=== PATIENT | male | born 1980 | race Caucasian/White ===

== ENCOUNTER 2017-12-29 11:32 | Emergency (ER) | payer BC, SELFPAY ==
[2017-12-29 11:33] VITALS: BP 151/87; PULSE 73; PULSE 77; RESP 16; TEMP 36.7; O2SAT 98; O2SAT 99; BMI 36.8
[2017-12-29 11:45] VITALS: BP 147/82; PULSE 71; RESP 14; O2SAT 97
--- NOTE | 2017-12-29 12:08 | RAD_ITS ---
STUDY: X-RAY CHEST REASON FOR EXAM: Male, 37 years old. Chest pain. Anxiety. TECHNIQUE: Single AP portable view of the chest. COMPARISON: Comparison is made with prior study dated August 04, 2010. FINDINGS: EKG electrodes are seen. The lungs are clear and expanded. There is no demonstrated pleural abnormality. Normal size heart. Normal mediastinum and michael. Normal visualized pulmonary arteries. Normal visualized aortic arch and descending thoracic aorta. Normal visualized thoracic spine. Normal visualized ribs, clavicles, and shoulders. There is no demonstrated abnormality of the visualized soft tissue structures of the upper abdomen. RAD/Chest 1 View (Portable) IMPRESSION: Normal x-ray examination of the chest. Electronically Signed: Oswaldo Garcia MD at 12:34 EST Tel [phone], Service support ,
--- NOTE | 2017-12-29 12:08 | EKG12_ITS ---
Test Reason : Blood Pressure : / mmHG Vent. Rate : 064 BPM Atrial Rate : 064 BPM P-R Int : 154 ms QRS Dur : 096 ms QT Int : 418 ms P-R-T Axes : 063 001 024 degrees QTc Int : 431 ms Normal sinus rhythm Normal ECG Confirmed by TAMMIE MALDONADO ([id number]), editor in chief newspaper REYMUNDO SUN ([id number]) on 01/03/2018 1:45:05 PM Referred By: VIC Confirmed By:TAMMIE MALDONADO
--- NOTE | 2017-12-29 12:08 | ED.VISSUMM ---
- ER Visit Summary Date of Service: 12/29/17 Chief Complaint: Midsternal chest pain History of Present Illness: The patient is a 37 M past medical history of hypertension and anxiety. He has never had any cardiac issues. He denies any history of DVT or PE. No recent travel, surgery or mobilization. No hemoptysis. No shortness of breath. Patient states today around 9 AM while at work he started getting midsternal chest discomfort. It did not radiate to his neck, left arm or jaw. He had no associated dyspnea. No recent trauma to his chest wall. No recent exertional dyspnea or exertional chest pain. He is never had a cardiac workup such as a stress test or heart catheterization. He has no significant family history of cardiac disease or blood clotting disorders. He denies any leg pain or swelling. Physical Examination: Well-appearing young male. Vital signs are stable and afebrile. He is not septic or toxic. He is in no distress. His pulse ox is 97% room air no signs of hypoxia. HEENT exam unremarkable. Neck nontender no lymphadenopathy. Lungs clear to auscultation bilaterally. Heart regular rhythm no murmur. Chest wall is nontender. Abdomen soft nontender. Normal bowel sounds. He is moving all 4 extremities. Neurovascular intact. Calves nontender without edema. Neurologically is awake and alert without focal deficits. Back exam normal. Test Results: See normal. BMP normal. Troponin normal. Chest x-ray portable one view read both myself the radiologist showed no acute abnormality. Normal cardiac silhouette and mediastinum. G sinus rhythm rate 64 with no acute abnormality. No signs of TN or ischemia. Emergency Department Course and Treatment: Young male with atypical nonreproducible chest pain. Will undergo cardiac workup for clinically at my suspicion for cardiac disease is very low and he has no risk factors for a DVT or PE. Treatment Plan: Repeat exam patient is doing well at 1510. He and I discussed all his test results and he and I feel comfortable with him being discharged home. Disposition: discharge Impression: Acute chest pain of uncertain etiology Anxiety This note was generated with [employer] dictation software. It may contain incorrect words, spelling, and punctuation that were not noted in review of the chart prior to signing ED Disposition - Plan for ED Patient: Chief Complaint: Chest Pain [facility] [[facility] Provider] -
[2017-12-29 12:40] LABS: Absolute Lymphocyte Count 1.97 X10^3/ul (0.83-4.51); Basophil# 0.05 X10^3/uL; Basophil% 0.6 % (0-1); Eosinophil# 0.15 X10^3/uL; Eosinophils% 1.9 % (0-5); Hematocrit 44.4 % (40-54); Hemoglobin 15.5 g/dl (13.0-16.5); Lymphocyte # 1.97 X10^3/ul (4.0); Lymphocyte % 24.4 % (19-41); Mean Corp Hgb Conc 34.9 g/gl (32-36); Mean Corpuscular Hgb 30.3 pg (27.0-32.0); Mean Corpuscular Volume 86.7 fL (80-94); Mean Platelet Vol. 10.7 fl (6.2-12.0); Monocyte# 0.93 X10^3/uL; Monocyte% 11.5 % (0-10); Neutrophil # 4.96 X10^3/uL (2.7-7.7); Neutrophil % 61.4 % (47-70); Platelet Count 247 K/mm3 (150-450); RBC Distribution Width CV 12.9 % (11.6-14.6); Red Blood Count 5.12 M/mm3 (4.6-6.2); White Blood Count 8.1 K/mm3 (4.4-11.0)
[2017-12-29 12:44] LABS: Anion Gap 6 (5-15); BUN 18 mg/dL (7-18); BUN/Creat Ratio 16.8 RATIO (10-20); Calcium,Total 8.8 mg/dL (8.5-10.1); Chloride 102 mmol/L (98-107); Creatinine, Serum 1.07 mg/dL (0.70-1.30); EST Glomerular Filtration Rate 83 mL/min (>60); Est Glom Filt Rate - Afr Amer 101 mL/min (>60); Estimated Creatinine Clearance 96.36 ml/min; Glucose 117 mg/dL (74-106); Potassium 3.8 mmol/L (3.5-5.1); Sodium Level 137 mmol/L (136-145)
[2017-12-29 13:03] VITALS: BP 140/88; PULSE 70; RESP 14; O2SAT 95
[2017-12-29 14:56] VITALS: BP 136/64; PULSE 66; RESP 16; O2SAT 95
--- NOTE | 2017-12-29 15:16 | ED.DEP ---
ED Disposition - Plan for ED Patient: Disposition: Home or Assisted Living Chief Complaint: Chest Pain Instructions: ED Chest Pain Atypical Unkn Cause [facility]errals: [facility] [Primary Care Provider] - 3-5 Days if not improving Additional Instructions: Your labs, test results, EKG and chest x-ray were normal today. This may be secondary to your anxiety. There does not appear to be eating wrong with your heart.
== END 2017-12-29 15:42 | disposition home or self-care (01) ==
PROVIDERS: Emergency Provider Emergency Medicine
DX: R07.89 Other chest pain (principal); F41.9 Anxiety disorder, unspecified; I10 Essential (primary) hypertension; J45.909 Unspecified asthma, uncomplicated; Z79.899 Other long term (current) drug therapy
CPT/HCPCS: 71045; 80048; 84484; 85025; 93005; 99285; A4216

== ENCOUNTER → 2018-08-02 16:35 | Outpatient (CLI) | payer BC, SELFPAY ==
[2018-08-02 17:37] LABS: Vitamin D,25 Hydroxy 9.1 ng/mL (29.95-100.01)
[2018-08-02 18:18] LABS: AST(SGOT) 36 U/L (15-37); Alanine Aminotransfer ALT/SGPT 52 U/L (16-61); Albumin, Serum 4.2 g/dL (3.2-5.0); Alkaline Phosphatase 47 U/L (45-117); Anion Gap 11 (5-15); BUN 16 mg/dL (7-18); BUN/Creat Ratio 13.3 RATIO (10-20); Bilirubin, Direct 0.06 mg/dL (0.00-0.30); Calcium,Total 8.4 mg/dL (8.5-10.1); Chloride 99 mmol/L (98-107); EST Glomerular Filtration Rate 73 mL/min (>60); Est Glom Filt Rate - Afr Amer 88 mL/min (>60); Globulin 3.7 g/dL (2.2-4.2); Glucose 129 mg/dL (74-106); Magnesium 2.1 mg/dL (1.6-2.6); Potassium 3.8 mmol/L (3.5-5.1); Protein, Total 7.9 g/dL (6.4-8.2); Sodium Level 138 mmol/L (136-145); T4 Free Direct 1.02 ng/dL (0.76-1.46)
== END ==
PROVIDERS: Visit Provider Physician Assistant Medical
DX: I10 Essential (primary) hypertension (principal); R53.83 Other fatigue
CPT/HCPCS: 36415; 80048; 80076; 82306; 83735; 84439; 84443

== ENCOUNTER → 2018-10-06 11:43 | Outpatient (CLI) | payer BC, SELFPAY ==
[2018-09-21 10:26] VITALS: BMI 36.4
--- NOTE | 2018-10-06 15:10 | STRESSREP ---
Stress Test Report Date: 10/06/2018 Procedure: Exercise tolerance test Indications: Palpitations; PVCs Consent: Per the patient Procedure: The patient exercised on a Jeison protocol for 9 minutes completing Stage III achieving a peak heart rate of 173 bpm (94 % predicted maximal heart rate) with a peak blood pressure 230/62 mmHg and a peak MET capacity of approximately 10 MET's. The baseline ECG demonstrated normal sinus rhythm. The peak exercise ECG demonstrated no obvious ECG changes. There were no cardiac dysrhythmias pretest, during exercise, or recovery. The functional capacity was considered good. The patient had no complaint of chest discomfort during exercise or recovery. The examination was discontinued secondary to dyspnea. Impression: 1. Technically adequate (percent predicted maximal heart rate greater than 85%) exercise tolerance test 2. Peak exercise ECG with no obvious ECG changes 3. There were no cardiac dysrhythmias during exercise or recovery This note was generated with [employer] software. It may contain incorrect words, spelling, and punctuation that were not noted in checking the note before signing.
--- OUTSIDE RECORDS SUMMARY | 2018-12-01 10:33 | XMS RPT_ITS | Summary of Care ---
:1980 Author Organization [facility] Address [address] [place] [address] Care Team Providers Name Role Phone Ellie Farooq MD Primary Care Provider Reason for Referral Cardio (Routine) Status Reason Specialty Diagnoses / Referred By Contact Referred To Contact Procedures Closed Cardiology Diagnoses Amaurosis fugax Hesham Farooqnt G, Procedures Carotid Duplex [address] [place] [phone] Cardio (Routine) Status Reason Specialty Diagnoses / Referred By Contact Referred To Contact Procedures Closed Cardiology Diagnoses Amaurosis fugax FarooqJordenEllie G, Procedures Carotid Duplex [address] [place] [id number] Reason for Visit Cardio (Routine) Status Reason Specialty Diagnoses / Referred By Contact Referred To Contact Procedures Closed Cardiology Diagnoses Amaurosis fugax Farooq Ellie G, Procedures Carotid Duplex [address] [place] [id number] Encounter Details Date Type Department Care Team Description 10/11/2018 Hospital Encounter [facility] Heart & Jorden Farooqicent Amaurosis fugax [facility] MD Benedicto Evangelista [address] [place] [address] Medical Office [place] [id number] Building [phone] [place] [address] Social History Tobacco Use Types Packs/Day Years Used Date Never Assessed Sex Assigned at Date Recorded Not on file as of this encounter Plan of Treatment Health Maintenance Due Date Last Done Comments TETANUS EVERY 10 YR 1980 SEQUENTIAL INFLUENZA VACCINE (#1) 2018 as of this encounter Procedures Procedure Name Priority Date/Time Associated Diagnosis Comments US DOPPLER CAROTID Routine 10/11/2018 12:41 PM Amaurosis fugax Results for this EST procedure are in the results section. in this encounter Results US DOPPLER CAROTID (10/11/2018 12:41 PM) Narrative Performed At Non-Invasive Vascular [facility] Patient:? CARROLL SEYMOUR R? Med Rec#:?[id number]? (Age): 1980(38y) ? Study Date:?10/11/2018? Room#:? Type:? Sex:? M Reading:?Dr. Smith Kim, , RPVI Reading:?VESO Referring:?ELLIE FAROOQ G Bakery Technician:?Chanell Noonan, RVT, RDMS Procedure Info:? [id number]... Study Quality:?Carotid Duplex: adequate Diagnosis: G45.3?Amaurosis fugax Carotid Duplex? Conclusions There was no evidence of stenosis of the right common carotid artery. There was no evidence of stenosis in the right internal carotid artery. There was no evidence of stenosis in the right external carotid artery. The right vertebral artery was patent with antegrade flow.?There was no evidence of stenosis in the right subclavian artery. There was no evidence of stenosis of the left common carotid artery. There was no evidence of stenosis in the left internal carotid artery. There was no evidence of stenosis in the left external carotid artery. The left vertebral artery was patent with antegrade flow.?There was no evidence of stenosis in the left subclavian artery. Findings The right common carotid artery showed no evidence of plaque.?The right internal carotid artery showed no evidence of plaque.?The right external carotid artery showed no evidence of plaque. The left common carotid artery showed no evidence of plaque.?The left internal carotid artery showed no evidence of plaque.?The left external carotid artery showed no evidence of plaque. The procedure was explained to the patient.?The patient voiced understanding.? Measurements ? Right Carotid PSV ? Name? Value?Units?PCCA? 108?cm/sec?MCCA? 113?cm/sec?DCCA? 104?cm/sec?PICA? 55? cm/sec?MADISON? 62? cm/sec?DICA? 77? cm/sec?ECA?7 5? cm/sec?Vertebral?49? cm/sec?Kala PSV? 165?cm/sec?PSCA? 168?cm/sec? Right Carotid EDV ? Name? Value?Units?PCCA? 18? cm/sec?MCCA? 22? cm/sec?DCCA? 24? cm/sec?PICA? 14? cm/sec?MADISON? 24? cm/sec?DICA? 32? cm/sec?ECA?0 ?cm/sec?Vertebral?10? cm/sec?Kala EDV? 21? cm/sec?PSCA? 0?cm/sec? Left Carotid PSV ? Name? Value?Units?PCCA? 119?cm/sec?MCCA? 107?cm/sec?DCCA? 105?cm/sec?PICA? 106?cm/sec?MADISON? 66? cm/sec?DICA? 53? cm/sec?ECA?1 29?cm/sec?Vertebral?46? cm/sec?PSCA? 138?cm/sec? Left Carotid EDV ? Name? Value?Units?PCCA? 27? cm/sec?MCCA? 24? cm/sec?DCCA? 21? cm/sec?PICA? 24? cm/sec?MADISON? 24? cm/sec?DICA? 21? cm/sec?ECA?2 2? cm/sec?Vertebral?17? cm/sec?PSCA? 0?cm/sec? Blood Pressures and Ratios ? Name? Value?Units?R ICA/CCA?0.68? ratio?L ICA/CCA?0.99? ratio? Electronically signed at 10/11/2018 13:42:02 by: Dr. Smith Kim MD, ROLANDAVI Procedure Note Interface, Rad In Heartlab Xper Echopacs - 10/11/2018 1:44 PM EST Non-Invasive Vascular Patient: CARROLL Og [facility] Rec#: [id number] (Age): 1980(38y) Study Date: 10/11/2018 Room#: Type: Sex: M Reading: Dr. Smith Kim MD, ROLANDAVI Reading: SONNY Referring: ELLIE FAROOQ G Bakery Technician: Chanell Noonan, RVT, RDMS Procedure Info: [id number]... Study Quality: Carotid Duplex: adequate Diagnosis: G45.3 Amaurosis fugax Carotid Duplex Conclusions There was no evidence of stenosis of the right common carotid artery. There was no evidence of stenosis in the right internal carotid artery. There was no evidence of stenosis in the right external carotid artery. The right vertebral artery was patent with antegrade flow. There was no evidence of stenosis in the right subclavian artery. There was no evidence of stenosis of the left common carotid artery. There was no evidence of stenosis in the left internal carotid artery. There was no evidence of stenosis in the left external carotid artery. The left vertebral artery was patent with antegrade flow. There was no evidence of stenosis in the left subclavian artery. Findings The right common carotid artery showed no evidence of plaque. The right internal carotid artery showed no evidence of plaque. The right external carotid artery showed no evidence of plaque. The left common carotid artery showed no evidence of plaque. The left internal carotid artery showed no evidence of plaque. The left external carotid artery showed no evidence of plaque. The procedure was explained to the patient. The patient voiced understanding. Measurements Right Carotid PSV Name Value Units PCCA 108 cm/sec MCCA 113 cm/sec DCCA 104 cm/sec PICA 55 cm/sec MADISON 62 cm/sec DICA 77 cm/sec ECA 75 cm/sec Vertebral 49 cm/sec Kala PSV 165 cm/sec PSCA 168 cm/sec Right Carotid EDV Name Value Units PCCA 18 cm/sec MCCA 22 cm/sec DCCA 24 cm/sec PICA 14 cm/sec MADISON 24 cm/sec DICA 32 cm/sec ECA 0 cm/sec Vertebral 10 cm/sec Kala EDV 21 cm/sec PSCA 0 cm/sec Left Carotid PSV Name Value Units PCCA 119 cm/sec MCCA 107 cm/sec DCCA 105 cm/sec PICA 106 cm/sec MADISON 66 cm/sec DICA 53 cm/sec ECA 129 cm/sec Vertebral 46 cm/sec PSCA 138 cm/sec Left Carotid EDV Name Value Units PCCA 27 cm/sec MCCA 24 cm/sec DCCA 21 cm/sec PICA 24 cm/sec MADISON 24 cm/sec DICA 21 cm/sec ECA 22 cm/sec Vertebral 17 cm/sec PSCA 0 cm/sec Blood Pressures and Ratios Name Value Units R ICA/CCA 0.68 ratio L ICA/CCA 0.99 ratio Electronically signed at 10/11/2018 13:42:02 by: Dr. Smith Kim MD, RPVI Performing Organization Address City/State/Zipcode Phone Number [facility] [address] [facility] [place] [address] in this encounter Visit Diagnoses Diagnosis Amaurosis fugax Transient arterial occlusion of retina
--- OUTSIDE RECORDS SUMMARY | 2018-12-01 10:33 | XMS RPT_ITS | Summary of Care ---
:[address] [facility] Address [address] [place] [address] Care Team Providers Name Role Phone Ellie Farooq MD Primary Care Provider Encounter Details Date Type Department Care Team Description 10/11/2018 Hospital Encounter [facility] Ellie Farooq, [address] Ari[address] Nieto MD [address] [phone] [place] [id number] Social History Tobacco Use Types Packs/Day Years Used Date Never Assessed Sex Assigned at Date Recorded Not on file as of this encounter Plan of Treatment Health Maintenance Due Date Last Done Comments TETANUS EVERY 10 YR 1980 SEQUENTIAL INFLUENZA VACCINE (#1) 2018 as of this encounter
--- OUTSIDE RECORDS SUMMARY | 2018-12-01 10:34 | XMS RPT_ITS ---
:1980 Author Organization OHIP Support Name Relationship Address Phone ABI OBANDOE Unavailable [address] + [place] [address] NOT GIVEN Unavailable [address] + [place], [place] [id number] MANGES, FLORA Unavailable [address] [place] [address] MANGES, FLORA Unavailable [address] + [place] [address] SOCIAL SECURITY Unavailable [address] + [place] [address] MANGES, FLORA Unavailable [address] + [place] [address] SOCIAL SECURITY Unavailable [address] [place] [address] MANGES, FLORA Unavailable [address] + [place] [address] SOCIAL SECURITY Unavailable [address] [place] [address] MANGES, FLORA Unavailable [address] + [place] [address] SOCIAL SECURITY Unavailable [address] [place] [address] MANGES, FLORA Unavailable [address] + [place] [address] SOCIAL SECURITY Unavailable [address] [place] [address] MANGES, FLORA Unavailable [address] + [place] [address] SOCIAL SECURITY Unavailable [address] [place] [address] MANGES, FLORA Unavailable [address] + [place] [address] SOCIAL SECURITY Unavailable [address] [place] [address] Care Team Providers Name Role Phone BARBARA GRACIA () Attending Unavailable ISRAEL NESS Attending Unavailable BARBARA GRACIA) Referring Unavailable BARBARA GRACIA () Referring Unavailable Harjinder Hernandez Admitting Unavailable NewHarjinder stock Attending Unavailable Farooq, Carlyle G Primary Care Unavailable Farooq , Carlyle G Admitting Unavailable Farooq , Carlyle G Attending Unavailable FAROOQ, CARLYLE G Attending Unavailable FAROOQ, CARLYLE G Referring Unavailable FAROOQ, CARLYLE G [facility] [place] [facility] Unavailable Pranav Samayoa Attending Unavailable Christiano, Naomi Attending Unavailable Sriram Rangel Attending [facility]available [facility] [place] Referring Unavailable Naomi Felton Attending Unavailable Naomi Felton [facility]ending [facility]available [facility] [place] [facility] Unavailable MoodFrancesco rosas Attending [facility]available [facility] [place] Referring Unavailable Francesco Herrera Attending Unavailable Francesco Herrera Referring Unavailable [facility] [place] Primary [facility] Unavailable FAROOQ, CARLYLE Consulting Unavailable PROBLEMS PROBLEMS DATE TYPE CONDITION / CODE ATTENDING STATUS SOURCE 10/11/2018 Admitting Amaurosis fugax / FAROOQ, Active [facility] diagnosis G45.3(ICD-10) CARLYLE G Three Repository 09/21/2018 Unknown I49.3 - Ventricular MoodisFrancesco good Active [facility] depolarization / Hospital I49.3(ICD-10) Repository 08/02/2018 Unknown R53.83 - Other Jose Francisco Active [facility] fatigue / Naomi aMrtin [facility] R53.83(ICD-10) Hospital Repository 08/02/2018 Unknown I10 - Essential Felton, Active [facility] (primary) Naomi [facility] hypertension / Hospital I10(ICD-10) Repository 07/06/2018 Active Headache / NA Active [facility] R51(ICD-10) [facility] [place] Repository 06/23/2018 Active Unknown / Neva GRACIA UNK(Unknown) BARBARA [facility] () [place] Repository PROCEDURES PROCEDURES No Procedure Records FoundRESULTS RESULTS US DOPPLER CAROTID Observed: 10/11/2018 Status: F Source: [facility] 1:42 PM THREE REPOSITORY Non-Invasive Vascular Patient: CARROLL Og [facility] Rec#: [id number] (Age): 1980(38y) Study Date: 10/11/2018 Room#: Type: Sex: M Reading: Dr. Smith Kim MD, RPVI Reading: SONNY Referring: CARLYLE FAROOQ G Associate Pathologist: Chanell Noonan, RVT, RDMS Procedure Info: 06647... Study Quality: Carotid Duplex: adequate Diagnosis: G45.3 [...] signed at 10/11/2018 13:42:02 by: Dr. Smith iKm MD, RPVI STRESS REPORT Observed: 10/06/2018 Status: F Source: [place] 3:12 PM [facility] REPOSITORY [facility] Cardiovascular Services [address] [place] [address] MR#: [id number] Acct: [id number] Name: FRENCH OBANDO Rep #: [id number] : 1980 38 From: Francesco Herrera MD Primary Care: [place] Status: REG CLI Ordering Dr: Sex: Mario Porter Stress Test Report Date: 10/06/2018 Procedure: Exercise tolerance test Indications: Palpitations; PVCs Consent: Per the patient Procedure: The patient exercised on a Jeison protocol for 9 minutes completing Stage III achieving a peak heart rate of 173 bpm (94 % predicted maximal heart rate) with a peak blood pressure 230/62 mmHg and a peak MET capacity of approximately 10 MET's. The baseline ECG demonstrated normal sinus rhythm. The peak exercise ECG demonstrated no obvious ECG changes. There were no cardiac dysrhythmias pretest, during exercise, or recovery. The functional capacity was considered good. The patient had no complaint of chest discomfort during exercise or recovery. The examination was discontinued secondary to dyspnea. Impression: 1. Technically adequate (percent predicted maximal heart rate greater than 85%) exercise tolerance test 2. Peak exercise ECG with no obvious ECG changes 3. There were no cardiac dysrhythmias during exercise or recovery This note was generated with [employer] dictation software. It may contain incorrect words, spelling, and punctuation that were not noted in checking the note before signing. 10/06/181511 <Electronically signed by Francesco Herrera MD> Date Francesco Herrera MD CC: [facility]; Francesco Herrera MD Date Dictated: 10/06/181509 Date Transcribed: 10/06/181509 Medical Scientific Liaison: PM Signed CARDIOLOGY VISIT Observed: 09/21/2018 Status: F Source: [place] REPORT 7:50 PM [facility] REPOSITORY [facility] [address] [place] [address] OFFICE VISIT Date of Service: 09/21/18 MR#: [id number] Acct: [id number] Name: FRENCH OBANDO Rep #: [id number] : 1980 Provider: Francesco Herrera MD Age/Sex: 38/M Location: [facility] Status: Signed HPI HPI Details: FRENCH OBANDO, is a 38 M who presents to the office today for outpatient cardiovascular follow-up of his underlying palpitations with respect to PACs and PVCs. He states he has been noticing and somewhat more frequently especially during exertion. He has had no other concerning chest discomfort suspicious for angina pectoris or evidence of CHF or pulmonary edema. There is been no near syncope or syncope. He has a variety of neurologic issues being evaluated through the [facility] with upcoming carotid artery duplex studies and MRI/MRA studies of the head and neck area. Intake Vital Signs09/21/18 Height 5 ft 10 in 09/21/18 Weight: 254 lb 09/21/18 Body Mass Index (BMI) 36.4 09/21/18 Blood Pressure 116/68 Intake Visit Reasons: Fluttering/Increased Fatigue Allergies No Known Allergies Allergy (Verified 09/21/18 10:26) Medications Lisinopril/Hydrochlorothiazide [Zestoretic 08/18.5 Tablet] 1 tab PO DAILY 12/29/17 [History Confirmed 09/21/18] albuterol sulfate HFA 90 mcg/actuation aerosol inhaler 1 puff INHALATION Q6H PRN 08/02/18 [History Confirmed 09/21/18] ibuprofen 200 mg tablet 200 mg PO TID-QID PRN 08/02/18 [History Confirmed 09/21/18] ergocalciferol (vitamin D2) 50,000 unit capsule 50,000 unit PO QWEEK 09/21/18 [History Confirmed 09/21/18] metformin 500 mg tablet 500 mg PO BID 09/21/18 [History Confirmed 09/21/18] omeprazole 20 mg capsule,delayed release 20 mg PO DAILY 09/21/18 [History Confirmed 09/21/18] [facility] Medical History Essential hypertension (Chronic) Hypertriglyceridemia (Chronic) Ventricular premature depolarization (Acute) Atrial premature depolarization (Acute) Seasonal allergies (Acute) Asthma (Chronic) GERD (gastroesophageal reflux disease) (Chronic) KEVEN (obstructive sleep apnea) (Chronic) PTSD (post-traumatic stress disorder) (Chronic) Hypertension (Inactive) Family History Father Diabetes Social History Smoking Status: Former smoker alcohol intake: never substance use type: does not use ROS Const Const: Positive for fatigue (continues) and weakness (left arm/leg); negative for weight gain, weight loss, frequent falls or excessive sweating Eyes Eyes: Negative for change in vision, blurry vision or transient loss of vision ENT ENT: Positive for balance problems (occasional); negative for dizziness Cardio Chest Pain: No Palpitations: Yes (more frequent; now noticing during the day x1 month. continues at night) feels like its: irregular (fluttering) Edema: None Muscle aches with walking: Left (LE) Resp Respiratory: Positive for SOB with activity (slight); negative for SOB at rest GI GI: Negative vomiting or vomiting blood/hematemesis : Negative for hematuria Musc Musc: Positive for balance problems (occasional), muscle weakness (Lt sided) and joint pain (hands); negative for muscle aches/ myalgia Skin Skin: Negative non-healing lesions or rash Neuro Neuro: Positive for weakness (left arm/leg); negative for blurry vision, dizziness, lightheadedness, frequent falls or orthostatic symptoms Joe Hematologic/Lymphatic: Negative for easy bleeding Endo Endo: Positive for fatigue (continues); negative for excessive sweating Psych Psych: Negative for anxiety or depression Allergy Allergy/Immunology: Negative for hives, Negative for rash Cardiology Exam Const Appearance: cooperative, no acute distress, well developed, healthy appearing, comfortable and well groomed Nutritional Appearance: overweight Orientation: alert, awake and oriented x3 Head Head: normocephalic, atraumatic and normal to inspection Ears: hearing grossly normal bilaterally Nose: external nose normal Face and Sinus: face symmetric Mouth: moist mucous membranes and oral mucosae normal Teeth and gingiva: dentition normal Eyes Conjunctivae: conjunctivae normal Pupils: PERRL EOM: EOM intact bilaterally Neck Neck: normal visual inspection, no JVD and full ROM Carotids: normal carotid upstroke; negative bruit Neck Mass: Negative Neck mass Chest Chest inspection: normal inspection of the chest, symmetric chest movement and normal respiratory effort Auscultation: Bilateral: Clear to Auscultation Cardio Palpation: normal PMI Rate: regular rate Rhythm: regular rhythm Heart sounds: S1 normal and S2 normal; negative rub, gallop or murmur GI GI: normal to inspection, soft and bowel sounds present; negative tender Neuro General: alert, awake, oriented x3 and moves all extremities Skin Skin: no rashes or lesions noted Extremities Pulses: Normal: Right Posterior Tibial Pulse, Left Posterior Tibial Pulse, Right Radial Pulse, Left Radial Pulse Lower Extremity Edema: None: Bilateral Psych Psychological: normal affect Assessment AND Plan 1. Premature atrial complexes I49.1 Plan At the present time he continues with his palpitations. He appears to notice some more so with exertion. He has not undergone any evaluation with exertion to assess his cardiac rate or rhythm. Thus it may not be unreasonable to attempt an exercise tolerance test/imaging study to evaluate what happens with his symptoms and his rate and rhythm for the need for further evaluation and care, etc. 2. Premature ventricular complex I49.3 Plan Again he seems to be symptomatic with his underlying ectopy. As noted above he will have evaluation with an exercise tolerance test to evaluate his rate and rhythm. This may help guide whether he needs additional cardiovascular evaluation or care Orders Orders: 3. Essential hypertension I10 Plan His blood pressure appears to be reasonably well-controlled at the moment. He will continue his current medical management Plan Detail Additional Comments He will continue to follow the [facility] for his other medical issues at this time If his studies are unremarkable and there is no need for further evaluation or care at this time he will be scheduled for an outpatient visit approximately 1 year barring unforeseen events Thank you for allowing me to participate in the care of your patient. Please don't hesitate to call if any issues arise. This note was generated using a voice recognition system and there may be incorrect words, spelling or punctuation that were not noted when reviewing the office note prior to saving. Follow Up 1 Year (PFM) Coding Level of Care Code Off vis,est,level 4 Diagnoses Premature atrial complexes I49.1 Premature ventricular complex I49.3 Essential hypertension I10 Coding Level of Care Code Off vis,est,level 4 Diagnoses Premature atrial complexes I49.1 Premature ventricular complex I49.3 Essential hypertension I10 09/21/181949 <Electronically signed by Francesco Herrera MD> Date Francesco Herrera MD Cosigner Signature: Date (if applicable) CC: [facility] CARDIOLOGY VISIT Observed: 08/08/2018 Status: F Source: [place] REPORT 4:43 PM [facility] REPOSITORY [facility] [address] [place] [address] OFFICE VISIT Date of Service: 08/02/18 MR#: [id number] Acct: [id number] Name: FRENCH OBANDO Rep #: [id number] : 1980 Provider: Naomi Felton Age/Sex: 38/M Location: [facility] Status: Signed HPI HPI Details: FRENCH OBANDO, is a 38 M who presents to the office today for an urgent appt. He sts that something just doesn't feel right. He started with headaches 6 weeks ago and all the other symptoms follwed after. He notes that he has he notes that he has sharp pain and pressure behind his sternum. He feels better when he lays on his side he can breath better on his back he is SOB. He has had an increase in his palpitations, he notes that his HR can be elevated. These occur on/off through out day. He does occasionally have dizziness. He feels that his balance is off, he notes that he has leg weakness in his left leg like someone kicked his feet out under him. He as not had any edema. He has had an increase in sweating. His PCP is at the [facility]. He has recently been treated for bronchitis. He was seen at [facility] got [place]. He was see by the eye doctor which was normal, he did have a head CT which was normal. He is not sure if they are going to order an MRI. Intake Vital Signs08/02/18 Height 5 ft 10 in 08/02/18 Weight: 254 lb 08/02/18 Body Mass Index (BMI) 36.4 08/02/18 Blood Pressure 130/82 H 08/02/18 Blood Pressure Location Lt brachial Intake Visit Reasons: palpitations/tightness/fatigue Gis Engineer Required: No Accompanied by: None Is patient in pain?: Yes Allergies No Known Allergies Allergy (Verified 08/02/18 15:09) Medications Lisinopril/Hydrochlorothiazide [Zestoretic 10/12.5 Tablet] 1 tab PO DAILY 12/29/17 [History Confirmed 08/02/18] albuterol sulfate HFA 90 mcg/actuation aerosol inhaler 1 puff INHALATION Q6H PRN 08/02/18 [History Confirmed 08/02/18] ibuprofen 200 mg tablet 200 mg PO TID-QID PRN 08/02/18 [History Confirmed 08/02/18] ranitidine 150 mg tablet 150 mg PO DAILY 08/02/18 [History Confirmed 08/02/18] PFSH Medical History Hypertriglyceridemia (Chronic) Hypertension (Chronic) Ventricular premature depolarization (Acute) Atrial premature depolarization (Acute) Seasonal allergies (Acute) Asthma (Chronic) GERD (gastroesophageal reflux disease) (Chronic) KEVEN (obstructive sleep apnea) (Chronic) PTSD (post-traumatic stress disorder) (Chronic) Family History Father Diabetes Social History Smoking Status: Former smoker alcohol intake: never substance use type: does not use ROS Const Const: Positive for weakness, fatigue and headache(s); negative for fever(s) Eyes Eyes: Negative for blind spots, loss of peripheral vision or transient loss of vision ENT ENT: Positive for headache(s) and dizziness; negative for tinnitus or Nosebleed/epistaxis Cardio Chest Pain: No Palpitations: Yes Edema: None Muscle aches with walking: None Resp Respiratory: Positive for SOB with activity; negative for SOB at rest, SOB orthopnea\SOB lying down or Cough GI GI: Negative nausea, vomiting, heartburn or vomiting blood/hematemesis : Negative for hematuria Musc Musc: Negative for muscle aches/ myalgia Neuro Neuro: Positive for weakness, headache(s), dizziness and lightheadedness; negative for near syncope, syncope or orthostatic symptoms Joe Hematologic/Lymphatic: Negative for easy bleeding Endo Endo: Positive for fatigue Cardiology Exam Const Appearance: cooperative, no acute distress and well developed Orientation: alert, awake and oriented x3 Head Head: normocephalic and atraumatic Mouth: moist mucous membranes Eyes General: appearance normal, both eyes and all related structures Conjunctivae: conjunctivae normal Pupils: PERRL EOM: EOM intact bilaterally Neck Neck: normal visual inspection, no lymphadenopathy and no JVD Carotids: Negative bruit Neck Mass: Negative Neck mass Chest Chest inspection: normal inspection of the chest and symmetric chest movement Auscultation: Bilateral: Clear to Auscultation Cardio Palpation: normal PMI Rate: regular rate Rhythm: regular rhythm Heart sounds: S1 normal and S2 normal; negative rub, gallop or murmur GI GI: normal to inspection, soft, no hepatosplenomegaly and bowel sounds present; negative tender Neuro General: alert, awake, oriented x3, CN's II-XI intact bilaterally and moves all extremities Extremities Pulses: Normal: Right Posterior Tibial Pulse, Left Posterior Tibial Pulse, Right Radial Pulse, Left Radial Pulse Lower Extremity Edema: None: Bilateral Psych Psychological: normal affect Assessment AND Plan 1. Essential hypertension I10 Plan - TWYLA Dumont Blood pressure is well controlled on current medications, we do not recommend any changes at this time. Orders Orders: 2. Fatigue, unspecified type R53.83 Plan - TWYLA Dumont Patient does continue to have very vague complaints. Will obtain labs. Do not feel that any additional cardiac testing needs to be done. Encouraged patient to further discuss complaints with primary care doctor per Orders Orders: 3. Palpitations R00.2 Plan - TWYLA Dumont Patient has not had any significance recurrence. We will continue to monitor. Plan Detail Other Medications New: Additional Comments - TWYLA Dumont Thank you for allowing us to participate in the patients plan of care, if you have any questions please do not hesitate to call. This note was generated using a voice recognition system and there may be incorrect words, spelling or punctuation that were not noted when reviewing the office note prior to saving. Coding Level of Care Code Off vis,est,level 4 Diagnoses Essential hypertension I10 Hypertension type: essential hypertension Fatigue, unspecified type R53.83 Fatigue type: unspecified Palpitations R00.2 Coding Level of Care Code Off vis,est,level 4 Diagnoses Essential hypertension I10 Hypertension type: essential hypertension Fatigue, unspecified type R53.83 Fatigue type: unspecified Palpitations R00.2 08/07/18 1310 <Electronically signed by Naomi WAKEFIELD> Date Naomi WAKEFIELD 08/08/18 1643<Electronically signed by Francesco Herrera MD> Cosigner Signature: Date (if applicable) Francesco Herrera MD CC: VITAMIN D,25 HYDROXY Collected: 08/02/2018 Status: F Source: [place] 4:39 PM [facility] REPOSITORY TYPE CODE TESTS RESULT OUT OF REFERENCE UNITS RANGE LAB L506.1000 29.95-100.01 ng/mL Low Vitamin D 9.1 25-OH Result Comment: Vitamin D 25(OH) Status Range Deficiency <20 ng/mL (50nmol/L) Insuffciency 20 - 30 ng/mL (50 - 75 nmol/L) Sufficiency 30 - 100 ng/mL (75 - 250 nmol/L) Toxicity >100 ng/mL (>250 nmol/L) Performed By: #### L506.1000 #### [facility] [address] [place], [place], [id number] BASIC METABOLIC Collected: 08/02/2018 Status: F Source: [place] PROFILE (BMP) 4:39 PM [facility] REPOSITORY TYPE CODE TESTS RESULT OUT OF RANGE REFERENCE UNITS LAB L501.0100 74-106 mg/dL High GLU 129 Result Comment: Moderate Lipemia, Result may be falsely increased. Fasting Glucose result greater than or equal to 126 mg/dL suggests DIABETES MELLITUS per A.D.A. criteria. Please note revised GLUCOSE reference range effective 2017. LAB L501.1000 7-18 mg/dL Normal BUN 16 LAB L501.1100 0.70-1.30 mg/dL Normal CREAT,SERUM 1.20 Result Comment: The validity of the calculated GFR AND GFRAA in patients over 70 years has not been determined. Clinical correlation is essential. LAB L501.1110 >60 mL/min Normal EST GFR 73 Result Comment: Non- GFR Calc LAB L501.1115 >60 mL/min Normal EST GFR - AA 88 Result Comment: GFR Calc LAB L501.1300 10-20 RATIO Normal BUN/CRE 13.3 LAB L501.2200 8.5-10.1 mg/dL Low CA 8.4 Result Comment: Moderate Lipemia, Result may be falsely decreased. LAB L501.5300 136-145 mmol/L Normal NA 138 LAB L501.5600 3.5-5.1 mmol/L Normal K 3.8 Result Comment: Moderate Hemolysis, Result may be falsely increased. LAB L501.5900 98-107 mmol/L Normal CL 99 LAB L501.6100 21.0-32.0 mmol/L Normal CO2 28.0 LAB L501.6200 5-15 Normal GAP 11 Performed By: #### L500.2500, L500.3400, L501.5200, L501.9520, L506.0400 #### [facility] [address] [place], [place], [id number] LIVER PROFILE Collected: 08/02/2018 Status: F Source: [place] 4:39 PM [facility] REPOSITORY TYPE CODE TESTS RESULT OUT OF RANGE REFERENCE UNITS LAB L501.1500 6.4-8.2 g/dL Normal T PROT 7.9 LAB L501.1800 3.2-5.0 g/dL Normal ALB 4.2 LAB L501.1950 2.2-4.2 g/dL Normal GLOB 3.7 LAB L501.4100 15-37 U/L Normal AST 36 Result Comment: Moderate Hemolysis, Result may be falsely increased. LAB L501.4305 45-117 U/L Normal ALK P 47 LAB L501.4405 16-61 U/L Normal ALT 52 LAB L501.4600 0.20-1.00 mg/dL Normal T BILI 0.70 LAB L501.4700 0.00-0.30 mg/dL Normal D BILI 0.06 Performed By: #### L500.2500, L500.3400, L501.5200, L501.9520, L506.0400 #### [facility] [address] [place], [place], [id number] MAGNESIUM Collected: 08/02/2018 Status: F Source: [place] 4:39 PM [facility] REPOSITORY TYPE CODE TESTS RESULT OUT OF RANGE REFERENCE UNITS LAB L501.5200 1.6-2.6 mg/dL Normal MG 2.1 Result Comment: Moderate Hemolysis, Result may be falsely increased. Performed By: #### L500.2500, L500.3400, L501.5200, L501.9520, L506.0400 #### [facility] [address] [place], [address] THYROID STIM HORMONE Collected: 08/02/2018 Status: F Source: [place] (TSH) 4:39 PM [facility] REPOSITORY TYPE CODE TESTS RESULT OUT OF RANGE REFERENCE UNITS LAB L501.9520 0.358-3.74 uIU/mL Normal TSH 1.50 Performed By: #### L500.2500, L500.3400, L501.5200, L501.9520, L506.0400 #### [facility] [address] [place], [place], [address] T4 FREE DIRECT Collected: 08/02/2018 Status: F Source: [place] 4:39 PM [facility] REPOSITORY TYPE CODE TESTS RESULT OUT OF RANGE REFERENCE UNITS LAB L506.0400 0.76-1.46 ng/dL Normal T4 FREE 1.02 DIRECT Performed By: #### L500.2500, L500.3400, L501.5200, L501.9520, L506.0400 #### [facility] [address] [place], [address] PROGRESS Observed: 07/06/2018 Status: COMPLETED Source: [place] 4:37 PM [facility] REPOSITORY O ID: [id number] Author: Gayla Santana Ct Service: (none) Author Type: (none) Type: Progress Notes Filed: 07/06/2018 4:37 PM Note Text: Radiology Service Progress Note PATIENT NAME: French Obando DATE OF SERVICE: July 06, 2018 TIME: 4:37 PM PATIENT IDENTITY VERIFICATION COMPLETED USING TWO (2) METHODS: Patient confirmed name verbally and Date of . PATIENT GENDER DATA: Male PATIENT RELEVANT IMPLANT DATA REVIEWED: Not Applicable RADIOLOGY DEPARTMENT: CT; Exam(s) Completed: Brain PERIPHERAL IV DATA: Not applicable SIGNED BY: Gayla Santana Ct July 06, 2018 4:[address] BRAIN WO IVCON Observed: 07/06/2018 Status: F Source: [place] 4:01 PM [facility] REPOSITORY * * *Final Report* * * DATE OF EXAM: Jul 06 2018 4:01PM [facility] 0504 - CT BRAIN WO IVCON / PROCEDURE REASON: Headache * * * * Physician Interpretation * * * * EXAMINATION: CT BRAIN WO IVCON CLINICAL HISTORY: Headache, sudden, unilateral, ipsilat Jose syndrome or carotid/vertebral dissection suspected TECHNIQUE: Serial axial images without IV contrast were obtained from the vertex to the foramen magnum. MQ: [id number] CT Dose-Length Product (DLP): 719 mGy*cm CT Dose Reduction Employed: No dose reduction techniques were required COMPARISON: None. RESULT: Post-operative change: None. Acute change: No evidence of an acute infarct or other acute parenchymal process. Hemorrhage: No evidence of acute intracranial hemorrhage. Mass Lesion / Mass Effect: There is no evidence of an intracranial mass or extraaxial fluid collection. No significant mass effect. Chronic change: None apparent. Parenchyma: There is no significant volume loss. The brain parenchyma is otherwise within normal limits for age. Ventricles: The ventricles are within normal limits of size and configuration for age. Paranasal sinuses and skull base: The visualized paranasal sinuses are grossly clear. The skull base and imaged soft tissues are unremarkable. IMPRESSION: Normal CT of the brain without contrast. Medical Scientific Liaison: JOE Transcribe Date/Time: Jul 06 2018 4:14P Dictated by : CLIF RODRIGUEZ MD This examination was interpreted and the report reviewed and electronically signed by: CLIF RODRIGUEZ MD on Jul 06 2018 4:16PM EST [id number] Observed: 06/27/2018 Status: COMPLETED Source: [place] 9:14 AM [facility] REPOSITORY HNO ID: [id number] Author: Israel Ness Service: (none) Author Type: Physician Type: Progress Notes Filed: 06/27/2018 9:22 AM Note Text: ASSESSMENT/PLAN: 1. Headache above the eye region - ICD9: 784.0, ICD10: R51 (primary diagnosis) - VISUAL FIELD 24-2 OU (BOTH EYES) Patient was recommended to see Neurologist for headaches. Patient is currently under the care of Dr. Gracia and is seeing him in 1 week and is scheduled for CT of brain in 1 week 2. PTSD (post-traumatic stress disorder) - ICD9: 309.81, ICD10: F43.[address] Samia Ness MD I have confirmed and edited as necessary the relevant ophthalmic history, review of systems, surgical history, and ophthalmological examination findings as obtained by the ophthalmic technical staff. I have seen and examined French Obando. I have discussed the examination findings, diagnosis, and treatment options with French Obando and/or his family. I have also reviewed and agree with the assessment and plan as stated above and agree with all its relevant components. I gave the patient the opportunity to ask questions about the findings, diagnosis, and treatment options. PROGRESS Observed: 06/23/2018 Status: COMPLETED Source: [place] 4:49 PM [facility] REPOSITORY HNO ID: [id number] Author: Barbara Massey) Samia Service: (none) Author Type: Physician Type: Progress Notes Filed: 06/25/2018 9:33 AM Note Text: Chief Complaint Patient presents with: headache/leg weakness: short term memory x 1 year - left leg weakness - upper back pain - shaky/jittery HPI French Obando is a 38 year old male who presents here today for Above Complaints.. Headache: symptoms started about 8 days ago without obvious cause. Described as sharp pain behind his left eye that feels like it radiates through to the back of his head. Symptoms occur about 10-12 times per day and last for about 10 seconds at a time. Treating with motrin which helps with pain. Admits to mixed up works, fatigue, short term memory loss. Denies slurred speech, numbness, tingling, weakness, eye injury, tearing, eye swelling/erythema, pain with eye movement, blurred vision, nausea, vomiting, phonophobia. Feels like symptoms are unchanged over the last week. Notes vision changes with what look like burn holes occasionally, does not seem to occur with the headaches. Past medical history, appointments, medications, allergies reviewed. Previous Medical History PAST MEDICAL HISTORY Diagnosis Date - Asthma - Back pain, chronic - HTN (hypertension) - Hypertriglyceridemia - PTSD (post-traumatic stress disorder) Previous Surgical History PAST SURGICAL HISTORY Procedure Laterality Date - EXPLORATORY SHOULDER SURGERY - TOOTH EXTRACTION 2003 [place] Family History FAMILY HISTORY Problem Relation Age of Onset - Diabetes Father - Diabetes Maternal Grandmother - Diabetes Paternal Grandmother - Cancer Paternal Aunt Lung Cancer - Cancer Paternal Uncle Hodgekins - Cancer Paternal Uncle Lung Cancer Patient Allergies ALLERGIES No Known Allergies Current Medications Current Outpatient Prescriptions on File Prior to Visit: ALBUTEROL INHALATION Inhale as instructed. lisinopril-hydrochlorothiazide 10-12.5 mg ORAL per tablet Take 1 tablet by mouth once daily. fluticasone-salmeterol (ADVAIR DISKUS) 250-50 mcg/dose INHALATION DsDv Inhale 1 Puff as instructed twice daily. RINSE AND GARGLE MOUTH WITH WATER AFTER EACH USE. (Patient not taking: Reported on 06/23/2018 ) terbinafine 1 % TOPICAL cream Apply to affected area. No current facility-administered medications on file prior to visit. 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 General Appearance: Well appearing, alert, in no acute distress, well-hydrated, well nourished.. Skin: Skin color, texture, turgor normal, no suspicious rashes or lesions. Eyes: Anicteric sclera. Pupils are equally round and reactive to light. Extraocular movements are intact. . Lungs: Lungs clear to auscultation. No wheezing, rhonchi, rales. Heart: RRR without murmur, gallop, or rubs. No ectopy. Abdomen: Normal abdominal exam, Abdomen soft, non-tender. Bowel sounds normal. No masses, organomegaly. Extremities: No deformities, edema, skin discoloration, clubbing or cyanosis. Good capillary refill. . Neurologic: Negative findings: speech normal, mental status intact, cranial nerves 2-12 intact, muscle tone normal, muscle strength normal, sensation to light touch and pinprick normal, reflexes normal and symmetric. Health Maintenance List ANNUAL PCP TEAM CHRONIC DISEASE VISIT due on 2000 BLOOD PRESSURE CONTROLLED due on 2000 DTAP,TDAP,TD(1 - Tdap) due on 2001 LIPID SCREEN due on 2017 INFLUENZA(1) due on 07/08/2018 ASSESSMENT/PLAN: 1. Headache, unspecified headache type - ICD9: 784.0, ICD10: R51 (primary diagnosis) Unknown cause. Will refer to optho due to vision changes. Advised OTC analgesics and discussed red flag symptoms. - CONSULT TO OPHTHALMOLOGY 2. Pain of left eye - ICD9: 379.91, ICD10: H57.12 - CONSULT TO OPHTHALMOLOGY 3. Vision changes - ICD9: 368.9, ICD10: H53.9 - CONSULT TO OPHTHALMOLOGY 4. Nonintractable episodic headache, unspecified headache type - ICD9: 784.0, ICD10: R51 Patient has family history of brain cancer and was worried about possible mass. With vision changes and headache will obtain CT scan and call with results. - CT BRAIN WO IVCON Barbara Gracia MD CNOV Observed: 06/23/2018 Status: COMPLETED Source: [place] 4:40 PM [facility] REPOSITORY Office Visit (FAMPWS) FRENCH OBANDO ([id number]) 1980 M Date Time Provider Department 06/23/18 4:40 PM BARBARA GRACIA) FAMPWS During your visit today, we recorded the following information about you: Pulse Respiration Blood pressure Weight 64/minute 12/minute 128/86 114.8 kg Height 1.74 m Barbara Gracia MD 06/25/2018 9:33 AM Signed Chief Complaint Patient presents with: headache/leg weakness: short term memory x 1 year - left leg weakness - upper back pain - shaky/jittery HPI French Obando is a 38 year old male who presents here today for Above Complaints.. Headache: symptoms started about 8 days ago without obvious cause. Described as sharp pain behind his left eye that feels like it radiates through to the back of his head. Symptoms occur about 10-12 times per day and last for about 10 seconds at a time. Treating with motrin which helps with pain. Admits to mixed up works, fatigue, short term memory loss. Denies slurred speech, numbness, tingling, weakness, eye injury, tearing, eye swelling/erythema, pain with eye movement, blurred vision, nausea, vomiting, phonophobia. Feels like symptoms are unchanged over the last week. Notes vision changes with what look like burn holes occasionally, does not seem to occur with the headaches. Past medical history, appointments, medications, allergies reviewed. Previous Medical History PAST MEDICAL HISTORY Diagnosis Date - Asthma - Back pain, chronic - HTN (hypertension) - Hypertriglyceridemia - PTSD (post-traumatic stress disorder) Previous Surgical History PAST SURGICAL HISTORY Procedure Laterality Date - EXPLORATORY SHOULDER SURGERY - TOOTH EXTRACTION 2002 [place] Family History FAMILY HISTORY Problem Relation Age of Onset - Diabetes Father - Diabetes Maternal Grandmother - Diabetes Paternal Grandmother - Cancer Paternal Aunt Lung Cancer - Cancer Paternal Uncle Hodgekins - Cancer Paternal Uncle Lung Cancer Patient Allergies ALLERGIES No Known Allergies Current Medications Current Outpatient Prescriptions on File Prior to Visit: ALBUTEROL INHALATION Inhale as instructed. lisinopril-hydrochlorothiazide 10-12.5 mg ORAL per tablet Take 1 tablet by mouth once daily. fluticasone-salmeterol (ADVAIR DISKUS) 250-50 mcg/dose INHALATION DsDv Inhale 1 Puff as instructed twice daily. RINSE AND GARGLE MOUTH WITH WATER AFTER EACH USE. (Patient not taking: Reported on 06/23/2018 ) terbinafine 1 % TOPICAL cream Apply to affected area. No current facility-administered medications on file prior to visit. 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 General Appearance: Well appearing, alert, in no acute distress, well-hydrated, well nourished.. Skin: Skin color, texture, turgor normal, no suspicious rashes or lesions. Eyes: Anicteric sclera. Pupils are equally round and reactive to light. Extraocular movements are intact. . Lungs: Lungs clear to auscultation. No wheezing, rhonchi, rales. Heart: RRR without murmur, gallop, or rubs. No ectopy. Abdomen: Normal abdominal exam, Abdomen soft, non-tender. Bowel sounds normal. No masses, organomegaly. Extremities: No deformities, edema, skin discoloration, clubbing or cyanosis. Good capillary refill. . Neurologic: Negative findings: speech normal, mental status intact, cranial nerves 2-12 intact, muscle tone normal, muscle strength normal, sensation to light touch and pinprick normal, reflexes normal and symmetric. Health Maintenance List ANNUAL PCP TEAM CHRONIC DISEASE VISIT due on 2000 BLOOD PRESSURE CONTROLLED due on 2000 DTAP,TDAP,TD(1 - Tdap) due on 2001 LIPID SCREEN due on 2017 INFLUENZA(1) due on 07/08/2018 ASSESSMENT/PLAN: 1. Headache, unspecified headache type - ICD9: 784.0, ICD10: R51 (primary diagnosis) Unknown cause. Will refer to optho due to vision changes. Advised OTC analgesics and discussed red flag symptoms. - CONSULT TO OPHTHALMOLOGY 2. Pain of left eye - ICD9: 379.91, ICD10: H57.12 - CONSULT TO OPHTHALMOLOGY 3. Vision changes - ICD9: 368.9, ICD10: H53.9 - CONSULT TO OPHTHALMOLOGY 4. Nonintractable episodic headache, unspecified headache type - ICD9: 784.0, ICD10: R51 Patient has family history of brain cancer and was worried about possible mass. With vision changes and headache will obtain CT scan and call with results. - CT BRAIN MAMIE Gracia MD Referring Provider: SELF [[id number]] Allergies As of Date: 06/23/2018 (No Known Allergies) Date Reviewed: 06/23/2018 Reviewed by: Keshav Weinberg Ma - Fully Assessed Reason for Visit: headache/leg weakness [Other] Cmt: short term memory x 1 year - left leg weakness - upper back pain - shaky/jittery Reason For Visit History Recorded Primary Visit Diagnosis:Headache, unspecified headache type [R51] Other Visit Diagnoses:Pain of left eye [H57.12] Vision changes [H53.9] Nonintractable episodic headache, unspecified headache type [R51] Order(s):CONSULT TO OPHTHALMOLOGY [9024] Order #: [id number]: 1 CT BRAIN WO IVCON [[id number]] Order #: [id number] FUTURE Prescriptions as of 06/23/2018 Sig: ALBUTEROL INHALATION Inhale as instructed. * LISINOPRIL 10 MG-HYDROCHLOROT* Take 1 tablet by mouth once d* FLUTICASONE 250 MCG-SALMETERO* Inhale 1 Puff as instructed t* Patient not taking: Reported on 06/23/2018 TERBINAFINE HCL 1 % TOPICAL C* Apply to affected area. Problem List As Of Date 06/23/2018 Noted Resolved Hypertension [I10] INVALID FOR* Bilateral inguinal hernia without obstruction o*INVALID FOR* Lower abdominal pain [R10.30] INVALID FOR* Disposition: Return if symptoms worsen or fail to improve. Follow-up and Disposition History Recorded Encounter Status:Closed by BARBARA GRACIA MD on 06/25/18 URGENT CARE VISIT Observed: 05/08/2018 Status: F Source: [place] REPORT 7:51 AM [facility] REPOSITORY [facility] [address] [place] [address] [address] [place] [address] OFFICE VISIT Date of Service: 05/08/18 MR#: [id number] Acct: [id number] Name: FRENCH OBANDO Rep #: [id number] : 1980 Provider: Sriram WAKEFIELD Age/Sex: 38/M Location: [facility] Status: Signed Intake Vital Signs05/08/18 Height 5 ft 10 in Intake Visit Reasons: CHEST CONGESTION Allergies No Known Allergies Allergy (Verified 05/08/18 07:10) Medications Lisinopril/Hydrochlorothiazide [Zestoretic 10/.5 Tablet] 1 tab PO DAILY 12/29/17 [History Confirmed 05/08/18] azithromycin 250 mg tablet See Label Instructions PO .COMPLEX #6 tab 05/08/18 [Rx Confirmed 05/08/18] methylprednisolone 4 mg tablets in a dose pack 4 mg PO PER PKG DIR 5 Days #21 tab 05/08/18 [Rx Confirmed 05/08/18] PFSH Medical History Hypertriglyceridemia (Chronic) Hypertension (Chronic) Ventricular premature depolarization (Acute) Atrial premature depolarization (Acute) Seasonal allergies (Acute) Asthma (Chronic) GERD (gastroesophageal reflux disease) (Chronic) KEVEN (obstructive sleep apnea) (Chronic) PTSD (post-traumatic stress disorder) (Chronic) Family History Father Diabetes Social History Smoking Status: Former smoker alcohol intake: never substance use type: does not use HPI HPI Details: FRENCH OBANDO, is a 38 M who presents to the office today for cough, congestion and sore throat for the past 7 days. Patient reports a history of asthma and has been using his inhaler 6-8 times daily during this episode. He describes his cough as usual dry however has been productive of green/yellow sputum several times. He does also report wheezing particularly worse at night which his inhaler does help with. He has had no difficulty breathing or chest pain. No fever, chills, sweats. No nausea, vomiting, diarrhea. No other associated symptoms or alleviating/aggravating factors ROS Const Constitutional: No fever(s), chills, headache(s), night sweats or abnormal sleep pattern ENT ENT: Positive for nasal discharge, nasal congestion, sore throat and post nasal drip; no headache(s), ear pain or ear discharge Resp Respiratory: Positive for cough Cough: Yes productive, wheezing and pain with cough; no hemoptysis or shortness of breath Cardio Cardiology: No chest pain at rest or shortness of breath Neuro Neurology: No headache(s), behavioral changes or confusion Psych Psychiatric: No abnormal sleep pattern, No behavioral changes, No confusion Aller/Imm Allergy/Immunologic: Positive for wheezing Exam Const General: cooperative, well developed HENMT Head: normal to inspection Ears: hearing grossly normal bilaterally Nose: nasal discharge clear Mouth: oral mucosae normal Throat: abnormal tonsil bilaterally, postnasal drainage Resp Effort AND Inspection: normal respiratory effort, no audible wheezes, not labored Auscultation: Bilateral: Clear to Auscultation Cardio Palpation: normal PMI Rate: regular rate Rhythm: regular rhythm Neuro General: alert, CN's II-XI intact bilaterally Psych Appearance: grossly normal Mental Status: mental status grossly normal Assessment AND Plan Problems 1. Acute bronchitis, unspecified organism J20.9 Status Acute 2. Mild intermittent asthma with exacerbation J45.21 Status Acute Plan Z-Ramos and Medrol Dosepak as prescribed today. Patient also advised to continue with his inhaler as needed. To follow-up with his PCP in 5-7 days if no better or sooner if worse. Advised of potential red flags when appropriate report to the ED. Patient verbalized understanding of all the above. This note was generated with [employer] dictation software. It may contain incorrect words, spelling, and punctuation that were not noted in checking the note before signing. Medications New: azithromycin take 500 mg today (day 1), then 250 mg for 4 days (days 2-5) PO Coding Level of Care Code Off vis,est,level 4 Diagnoses Acute bronchitis, unspecified organism J20.9 Bronchitis organism: unspecified organism Mild intermittent asthma with exacerbation J45.21 Asthma severity: mild Asthma persistence: intermittent 05/08/18 0751 <Electronically signed by Sriram WAKEFIELD> Date Sriram Rangel TWYLA Colbyjunioreden Signature: Date (if applicable) CC: 12 LEAD ELECTROCARDIOGRAM Observed: 01/03/2018 Status: F Source: JAH 1:45 PM [facility] REPOSITORY [facility] Cardiovascular Services [address] [place] [address] 12 Lead EKG 12/29/17 1142 MR#: [id number] Acct: [id number] Name: FRENCH OBANDO R Rep #: [id number] : 1980 37 From: Clif Maldonado MD Attending Dr: Status: DEP ER Ordering Dr: Pranav Samayoa MD Date: 12/29/17 Location: ED Sex: M C Admitted: Test Reason : Blood Pressure : / mmHG Vent. Rate : 064 BPM Atrial Rate : 064 BPM P-R Int : 154 ms QRS Dur : 096 ms QT Int : 418 ms P-R-T Axes : 063 001 024 degrees QTc Int : 431 ms Normal sinus rhythm Normal ECG Confirmed by CLIF MALDONADO ([id number]), editor in chief newspaper REYMUNDO SUN ([id number]) on 01/03/2018 1:45:05 PM Referred By: VIC Confirmed By:CLIF MALDONADO 01/03/18 1345 Date Clif Maldonado MD CC: [facility]; Pranav Samayoa MD Signed EMERGENCY DEPARTMENT Observed: 12/29/2017 Status: F Source: JAH SUMMARY 3:46 PM [facility] Medical Records Department [address] [place] [address] Emergency Department Summary 12/29/17 1208 MR#: [id number] Acct: [id number] Name: FRENCH OBANDO Earle Rep #: [id number] : 1980 37 From: Pranav Samayoa MD PCP: [place] Status: DEP ER - ER Visit Summary Date of Service: 12/29/17 Chief Complaint: Midsternal chest pain History of Present Illness: The patient is a 37 M past medical history of hypertension and anxiety. He has never had any cardiac issues. He denies any history of DVT or PE. No recent travel, surgery or mobilization. No hemoptysis. No shortness of breath. Patient states today around 9 AM while at work he started getting midsternal chest discomfort. It did not radiate to his neck, left arm or jaw. He had no associated dyspnea. No recent trauma to his chest wall. No recent exertional dyspnea or exertional chest pain. He is never had a cardiac workup such as a stress test or heart catheterization. He has no significant family history of cardiac disease or blood clotting disorders. He denies any leg pain or swelling. Physical Examination: Well-appearing young male. Vital signs are stable and afebrile. He is not septic or toxic. He is in no distress. His pulse ox is 97% room air no signs of hypoxia. HEENT exam unremarkable. Neck nontender no lymphadenopathy. Lungs clear to auscultation bilaterally. Heart regular rhythm no murmur. Chest wall is nontender. Abdomen soft nontender. Normal bowel sounds. He is moving all 4 extremities. Neurovascular intact. Calves nontender without edema. Neurologically is awake and alert without focal deficits. Back exam normal. Test Results: See normal. BMP normal. Troponin normal. Chest x-ray portable one view read both myself the radiologist showed no acute abnormality. Normal cardiac silhouette and mediastinum. G sinus rhythm rate 64 with no acute abnormality. No signs of OR or ischemia. Emergency Department Course and Treatment: Young male with atypical nonreproducible chest pain. Will undergo cardiac workup for clinically at my suspicion for cardiac disease is very low and he has no risk factors for a DVT or PE. Treatment Plan: Repeat exam patient is doing well at 1510. He and I discussed all his test results and he and I feel comfortable with him being discharged home. Disposition: discharge Impression: Acute chest pain of uncertain etiology Anxiety This note was generated with [employer] dictation software. It may contain incorrect words, spelling, and punctuation that were not noted in review of the chart prior to signing ED Disposition - Plan for ED Patient: Chief Complaint: Chest Pain Referrals[place] [facility] [Primary Care Provider] - What to do if you have Problems For any increased pain, shortness of breath, bleeding, nausea or vomiting, chest pain, or any unexpected problems, contact your Primary Care Provider. Call [facility] ([phone]) or report to the closest Emergency Room. Call 911 if necessary. 12/29/17 1544 <Electronically signed by Pranav Samayoa MD> Date Pranav Samayoa MD Cosigner Signature (If Indicated): Date CC: [facility] DISCHARGE INSTRUCTION Observed: 12/29/2017 Status: F Source: JAH 3:45 PM [facility] REPOSITORY [facility] Medical Records Department [address] [place] [address] [place] [address] Discharge Instruction 12/29/17 1516 MR#: [id number] Acct: [id number] Name: FRENCH OBANDO Rep #: [id number] : 1980 37 From: Pranav Samayoa MD PCP: [facility] [place] Status: [facility] ER ED Disposition - Plan for ED Patient: Disposition: Home or Assisted Living Chief Complaint: Chest Pain Instructions: ED Chest Pain Atypical Unkn Cause Referrals: [place] [Primary Care Provider] - 3-5 Days if not improving Additional Instructions: Your labs, test results, EKG and chest x-ray were normal today. This may be secondary to your anxiety. There does not appear to be eating wrong with your heart. What to do if you have Problems For any increased pain, shortness of breath, bleeding, nausea or vomiting, chest pain, or any unexpected problems, contact your Primary Care Provider. Call [facility] ([phone]) or report to the closest Emergency Room. Call 911 if necessary. 12/29/17 1545 <Electronically signed by Pranav Samayoa MD> Date Pranav Samayoa MD Cosigner Signature (If Indicated): Date CC: [facility] CHEST 1 VIEW Observed: 12/29/2017 Status: F Source: JAH (PORTABLE) 12:08 PM [facility] REPOSITORY [facility] Imaging Services [address] [place] [address] Chest 1 View (Portable) MR#: [id number] Acct: [id number] Name: FRENCH OBANDO Rep #: [id number] : 1980 M 37 From: Oswaldo Garcia MD PCP: [place] Status: REG ER Study: Chest 1 View (Portable) Date of Exam: 12/29/17 Exam# [id number] Ordering Dr: Pranav Samayoa MD STUDY: X-RAY CHEST REASON FOR EXAM: Male, 37 years old. Chest pain. Anxiety. TECHNIQUE: Single AP portable view of the chest. COMPARISON: Comparison is made with prior study dated August 04, 2010. FINDINGS: EKG electrodes are seen. The lungs are clear and expanded. There is no demonstrated pleural abnormality. Normal size heart. Normal mediastinum and michael. Normal visualized pulmonary arteries. Normal visualized aortic arch and descending thoracic aorta. Normal visualized thoracic spine. Normal visualized ribs, clavicles, and shoulders. There is no demonstrated abnormality of the visualized soft tissue structures of the upper abdomen. RAD/Chest 1 View (Portable) IMPRESSION: Normal x-ray examination of the chest. Electronically Signed: Oswaldo Garcia MD at 12:34 EST Tel [phone], Service support , CC: [facility]; Pranav Samayoa MD Medical Scientific Liaison: Signed CBC W/DIFF, AUTOMATED Collected: 12/29/2017 Status: F Source: JAH 11:52 AM [facility] REPOSITORY TYPE CODE TESTS RESULT OUT OF RANGE REFERENCE UNITS LAB L100.1000 4.4-11.0 K/mm3 Normal WBC 8.1 LAB L100.1200 4.6-6.2 M/mm3 Normal RBC 5.12 LAB L100.1300 13.0-16.5 g/dl Normal HGB 15.5 LAB L100.1400 40-54 % Normal HCT 44.4 LAB L100.1500 80-94 fL Normal MCV 86.7 LAB L100.1600 27.0-32.0 pg Normal MCH 30.3 LAB L100.1700 32-36 g/gl Normal MCHC 34.9 LAB L100.1810 11.6-14.6 % Normal RDW CV 12.9 LAB L100.1820 35.1-43.9 fl Normal RDW SD 41.0 LAB L100.1900 150-450 K/mm3 Normal PLT 247 LAB L100.2000 6.2-12.0 fl Normal MPV 10.7 LAB L100.2100 47-70 % Normal NEUT% 61.4 LAB L100.2200 19-41 % Normal LY% 24.4 LAB L100.2300 0-10 % High MONO% 11.5 LAB L100.2400 0-5 % Normal EO% 1.9 LAB L100.2500 0-1 % Normal BASO% 0.6 LAB L100.2550 0.0-0.9 % Normal IM GRAN % 0.200 Result Comment: IG% - Immature Granulocytes (promyelocytes, myelocytes and metamyelocytes) > 1% indicates that a LEFT SHIFT is Present. LAB L100.2620 2.0-7.7 X10 3/uL Normal Absolute Neut 5.0 LAB L100.2720 0.83-4.51 X10 3/ul Normal Absolute Lymph 1.97 Performed By: #### L100.0100 #### [facility] [address] [place], [address] BASIC METABOLIC Collected: 12/29/2017 Status: F Source: JAH PROFILE (BMP) 11:52 AM [facility] REPOSITORY Order Comment: 'TROP' Serial specimen #1, #2, #3, or #4: 1 TYPE CODE TESTS RESULT OUT OF RANGE REFERENCE UNITS LAB L501.0100 74-106 mg/dL High GLU 117 Result Comment: Fasting Glucose result from 100 to 125 mg/dL suggests IMPAIRED HOMEOSTASIS per A.D.A. criteria. Please note revised GLUCOSE reference range effective 2017. LAB L501.1000 7-18 mg/dL Normal BUN 18 LAB L501.1100 0.70-1.30 mg/dL Normal CREAT,SERUM 1.07 Result Comment: The validity of the calculated GFR AND GFRAA in patients over 70 years has not been determined. Clinical correlation is essential. LAB L501.1110 >60 mL/min Normal EST GFR 83 Result Comment: Non- GFR Calc LAB L501.1115 >60 mL/min Normal EST GFR - AA 101 Result Comment: GFR Calc LAB L501.1255 ml/min Normal Estimated CRCL 96.36 LAB L501.1300 10-20 RATIO Normal BUN/CRE 16.8 LAB L501.2200 8.5-10 mg/dL Normal .1 CA 8.8 LAB L501.5300 136-14 mmol/L Normal 5 NA 137 LAB L501.5600 3.5-5. mmol/L Normal 1 K 3.8 Result Comment: Slight Hemolysis, Result may be falsely increased. LAB L501.5900 98-107 mmol/L Normal CL 102 LAB L501.6100 21.0-32.0 mmol/L Normal CO2 29.0 LAB L501.6200 5-15 Normal 6 GAP Performed By: #### L500.2500, L501.4010 #### [facility] [place], [place], [address] TROPONIN-I Collected: 12/29/2017 Status: F Source: OMAHA 11:52 AM [facility] REPOSITORY Order Comment: 'TROP' Serial specimen #1, #2, #3, or #4: 1 TYPE CODE TESTS RESULT OUT OF RANGE REFERENCE UNITS LAB L501.4010 <0.06 ng/mL Normal < 0.02 TROPONIN-I Result Comment: TROPONIN-I EXPECTED VALUES <0.05 NEGATIVE 0.06 - 0.59 AT RISK OF OR > OR = 0.60 SUGGEST OR Performed By: #### L500.2500, L501.4010 #### [facility] [address] [place], [address] ALLERGIES ALLERGIES DATE TYPE / CODE NAME / CODE REACTION SEVERITY SOURCE 09/21/2018 Drug No Known Unknown [place] Allergy/416 Allergies/X090762 Community 314521(SNOM 388(RXNORM) [facility] ED CT) Repository Drug/990028 No Known [facility] 003([facility]) Allergies System Repository Drug NO KNOWN [facility] Class/99604 ALLERGIES [place] 1003(SNOMED Repository CT) ENCOUNTERS ENCOUNTERS ADMIT/DISCHARGE ACCOUNT NUMBER ADMITTING ENCOUNTER LOCATION SOURCE CLASS 10/11/2018 [id number] Oseas HAR[place], Ambulatory [facility] Repository 10/11/2018/10/11/20 [id number] Ambulatory Building:[place] [address] [address] Repository 10/06/2018 [id number] Ambulatory [facility] ding:[facility]S Repository 09/21/2018/09/21/20 [id number] Ambulatory BMSBuilding: [place] 18 BMS.[facility] Repository 08/02/2018 [id number] Ambulatory [facility] ding:LAB Repository 08/02/2018/08/02/20 [id number] Ambulatory BMSBuilding: [place] 18 BMS.[facility] Repository 07/18/2018/07/18/20 [id number] Harjinder [facility] Geraldo g[facility] Repository 07/06/2018/07/06/20 [id number] Ambulatory [address] Repository 06/27/2018/06/28/20 [id number] Ambulatory [address] Repository 06/23/2018/06/26/20 [id number] Ambulatory [address] Repository 05/08/2018/05/08/20 [id number] Ambulatory BMSBuilding: [place] 18 BMS.[facility] Repository 05/01/2018 [id number] Ambulatory BMSBuilding: [place] BMS.[facility] Repository 12/29/2017/12/29/19 [id number] Emergency [address] ding:ED Repository PAYERS PAYERS ENCOUNTER GUARANTOR PAYER SUBSCRIBER SOURCE 10/11/2018 Primary FRENCH R [facility] Insurance:Veterans MANGESDOB: [place] AdministrationPolicy [id number] Tiffany Number: 15 [facility] [id number] [place] Repository Date:Plan Name:Health [place], [place] [address]Nzz: () 10/11/2018 FRENCH R Primary FRENCH R [facility] MANGESDOB: Insurance:VAPolicy MANGESDOB: Three Number: [id number] Repository [facility] [id number] 15 [place], [place] Date:2018-10-09 [place] [address]Mzo: (330) [place], [place] [phone] (HP) [phone]: (HP) 10/06/2018 FRENCH R Primary FRENCH R [place] [id number] Insurance:ANTHEMPolicy MANGESDOB: [facility] Number: [id number] [place], [place] [id number] Repository [address]Hyz: (330) Date:1911-89-25XH [phone] () [address] [place] [address]OU: 10/06/2018 Secondary Insurance:SELF NOT GIVENUNK [place] [facility] Number: Effective Hospital Date:2018-09-21 Repository 09/21/2018 FRENCH R Primary FRENCH R [place] [id number] Insurance:ANTHEMPolicy MANGESDOB: [facility] Number: [id number] [place], [place] [id number] Repository [address]Gti: (330) Date:2972-90-78KP [phone] () [address] [place] [address]CO: 09/21/2018 Secondary Insurance:SELF NOT GIVENUNK [place] PAY INSURANCEPoly [facility] Number: Effective Hospital Date:2018-09-21 Repository 08/02/2018 FRENCH R Primary FRENCH R [place] [id number] Insurance:ANTHEMPolicy MANGESDOB: [facility] Number: [id number] [place], [place] [id number] Repository [address]Kbk: (330) Date:0537-51-68TD [phone] (HP) [id number], [place] [address]IF: 08/02/2018 Secondary Insurance:SELF NOT GIVENUNK [place] PAY INSURANCEPolicy Community Number: Effective Hospital Date:2018-08-02 Repository 08/02/2018 FRENCH R Primary FRENCH R [place] [id number] Insurance:ANTHEMPolicy MANGESDOB: [facility] Number: [id number] [place], [place] [id number] Repository [address]Aro: (330) Date:4837-29-32WI [phone] () [address], [place] [address]KY: 08/02/2018 Secondary Insurance:SELF NOT GIVENUNK [place] PAY INSURANCEPolicy Community Number: Effective Hospital Date:2018-08-02 Repository 07/18/2018 FRENCH R Primary Insurance:1500 FRENCH R [place] MANGESDOB: ANTHEMPolicy Number: MANGESDOB: [facility] [id number] Effective Date:2018-07-18 [id number] [place] [address] - [id number] 15 [place], [place] Name:CD:[id number] [facility] [address]Grv: [id number], [place] [address]WP: [phone]: (hp) [phone] (HP) () 05/08/2018 FRENCH R Primary FRENCH R [place] [id number] Insurance:ANTHEMPolicy MANGESDOB: [facility] Number: [id number] [place], [place] [id number] Repository [address]Zrx: (330) Date:6216-01-80YT [phone] (HP) [id number] [place] [address]AA: 05/08/2018 Secondary Insurance:SELF NOT GIVENUNK [place] PAY INSURANCEPolicy Community Number: Effective Hospital Date:2018-05-08 Repository 05/01/2018 FRENCH R Primary FRENCH R [place] [id number] Insurance:ANTHEMPolicy MANGESDOB: [facility] Number: [id number] [place], [place] [id number] Repository [address]Nps: 330) Date:6040-88-21DV [phone] () [address]G, [place] [address]TI: 05/01/2018 Secondary Insurance:SELF NOT GIVENUNK [place] PAY INSURANCEPolicy Community Number: Effective Hospital Date:2018-05-01 Repository 12/29/2017 FRENCH R Primary FRENCH R [place] [id number] Insurance:ANTHEMPolicy MANGESDOB: [facility] Number: [id number] [place], [place] [id number] Repository [address]Tan: (330) Date:4962-20-72OA [phone] () [id number], [place] [address]MS: 12/29/2017 Secondary Insurance:SELF NOT GIVENUNK [place] PAY INSURANCEPolicy Community Number: Effective Hospital Date:2017-12-29 Repository
== END ==
PROVIDERS: Referring Provider Internal Medicine Cardiovascular Disease; Visit Provider Internal Medicine Cardiovascular Disease
DX: I49.3 Ventricular premature depolarization (principal)
CPT/HCPCS: 93017

== ENCOUNTER → 2019-08-13 06:05 | Outpatient (CLI) | payer BC, SELFPAY ==
[2019-07-31 13:25] VITALS: BMI 37.7
--- NOTE | 2019-08-13 16:16 | STRESSREP_ITS ---
Stress Test Report Date: 08-13-19 Procedure: Exercise tolerance test/imaging study Indications: Chest pain; palpitations Consent: Per the patient Procedure: The patient exercised on a Jeison protocol for 10 minutes and 30 seconds completing Stage III and 1 minute and 30 seconds of Stage IV achieving a peak heart rate of 179 bpm (97 % predicted maximal heart rate) with a peak blood pressure 210/76 mmHg and a peak MET capacity of 12 METs. The baseline ECG demonstrated normal sinus rhythm. The peak exercise ECG demonstrated no obvious ECG changes. There was an isolated PVC during exercise. The functional capacity was considered good. There was no complaint of chest discomfort during exercise or recovery. The examination was discontinued secondary to dyspnea and leg discomfort. Impression: 1. Technically adequate (percent predicted maximal heart rate greater than 85%) exercise tolerance test 2. Peak exercise ECG with no obvious ECG changes 3. There was an isolated PVC during exercise 4. Nuclear images pending Myocardial perfusion imaging study: Technique: The patient was injected with 15.0 mCi of technetium 99m Cardiolite and subsequently rest SPECT Cardiolite nuclear imaging was obtained in the horizontal long, vertical long, and short axis views. The patient exercised on a Jeison protocol for 10 minutes and 30 seconds completing Stage III and 1 minute and 30 seconds of Stage IV achieving a peak heart rate of 179 bpm (97 % predicted maximal heart rate) with a peak blood pressure 210/76 mmHg and a peak MET capacity of 12 METs. The patient was injected with 45.0 mCi of technetium 99m Cardiolite and subsequently stress SPECT Cardiolite nuclear imaging was obtained in the horizontal long, vertical long, and short axis views. A gated Cardiolite study at peak stress was obtained. Interpretation: Rest and stress SPECT Cardiolite nuclear imaging status post realignment, normalization, and attenuation correction, demonstrates rest and stress SPECT cardio light nuclear imaging demonstrate at rest the appearance of subtle decreased tracer uptake in portions of the distal anterior segments which appears to improve/normalize following stress. Following stress there appears to be relative uniform tracer uptake and myocardial perfusion appearing within normal limits.. There is end systolic thickening and brightening. The gated Cardiolite study demonstrates myocardial thickening and inward wall motion. The reported LVEF is 67 %. Impression: 1. Rest and stress SPECT Cardiolite nuclear imaging demonstrate resting myocardial perfusion changes which appear to improve and/or normalize following stress appearing compatible shifting soft tissue attenuation/artifact with no myocardial perfusion changes considered diagnostic for associated stress-induced myocardial ischemia. 2. The gated Cardiolite study reports an LVEF of 67 %. This note was generated with [employer] software. It may contain incorrect words, spelling, and punctuation that were not noted in checking the note before signing.
== END ==
PROVIDERS: Referring Provider Physician Assistant Medical; Visit Provider Physician Assistant Medical
DX: R07.9 Chest pain, unspecified (principal)
CPT/HCPCS: 78452; 93017; A9500; A4216

== ENCOUNTER → 2025-07-04 | Outpatient (CLI) | payer OTHER, SELFPAY ==
--- NOTE | 2025-07-04 08:39 | MRI_ITS ---
PROCEDURE: BRAIN WITHOUT CONTRAST 07/04/2025 REASON FOR EXAM: CHRONIC HEADACHES TECHNIQUE: MRI BRAIN WITHOUT CONTRAST Multiplanar and multisequence images were obtained. COMPARISON: None provided. FINDINGS: Diffusion-weighted images demonstrate no area of diffusion restriction. Brain: No intracranial mass or mass effect is seen. No orbital pathology is noted. No extra-axial fluid collection is seen. Ventricles: Normal. Sinuses: Qlil-de-oyskmvaf mucosal thickening is seen of the bilateral ethmoid maxillary sinuses. No air-fluid level is noted. The remaining paranasal sinuses appear clear. Mastoids: Mastoid air cells appear clear. MRI/Brain without Contrast IMPRESSION: 1. No significant intracranial abnormality is noted. 2. Chronic appearing paranasal sinus disease. Reading Location: [place] [address]
== END | disposition home or self-care (01) ==
PROVIDERS: Referring Provider Internal Medicine; Visit Provider Internal Medicine
DX: R51.9 Headache, unspecified (principal)
CPT/HCPCS: 70551